=== PATIENT | female | born 1950 | race Caucasian/White ===

== ENCOUNTER 2020-07-15 20:08 | Inpatient (IN) | payer MEDICARE ==
[~2020-07-15 20:08] MED LIST: Iopamidol-370 76% 500 ML 1 ML ONE
[2020-07-15] MEDS ORDERED: Famotidine/PF 20 mg/2ml Vial ONE (23:38)
[2020-07-15] MEDS ORDERED: cefTRIAXone\\ROCEPHIN 2 GM VIAL ONE (23:38)
[2020-07-15] MEDS ORDERED: methylPREDNISolone Sod Succ/PF 125 MG/2 ML VIAL ONE (23:38)
[2020-07-15] MEDS ORDERED: diphenhydrAMINE 50 MG/ML VIAL ONE (23:38)
[2020-07-15 23:47] LABS: #Eosinphils 0.4 thou/uL (0.0-0.7); #Lymphocytes 1.4 thou/uL (1.20-3.40); #Monocytes 0.8 thou/uL (0.11-0.59); #Neutrophils 3.1 thou/uL (1.40-6.50); %Basophils 0.4 % (0.0-1.0); %Eosinophils 6.9 % (0.0-10.0); %Lymphocytes 24.5 % (21.0-51.0); %Monocytes 13.4 % (0.0-10.0); %Neutrophils 54.8 % (42.0-75.0); Hemoglobin 8.9 g/dL (12.0-16.0); Mean Corpuscular HGB CONC 32.3 g/dL (32.0-36.0); Mean Corpuscular Hemoglobin 30.8 pg (27.0-31.0); Mean Corpuscular Volume 95.1 fL (78.0-98.0); Mean Platelet Volume 7.5 fL (7.4-10.4); Platelet Count 287 thou/uL (130-400); RBC Distribution Width 17.7 % (11.5-14.5); Red Blood Cell (RBC) Count 2.91 mill/uL (4.20-5.40); White Blood Cell (WBC) Count 5.6 thou/uL (4.8-10.8)
[2020-07-16 00:08] LABS: ALT (SGPT) 27 U/L (8-55); AST (SGOT) 33 U/L (5-34); Albumin 2.6 g/dL (3.4-4.8); Alkaline Phosphatase 119 U/L (40-110); Anion Gap 10 mmol/L (10-20); BUN (Urea Nitrogen) 7 mg/dL (9.8-20.1); Bilirubin, Total 0.5 mg/dL (0.2-1.2); CK (CPK) 48 U/L (29-168); Calc. Creatinine Clearance 0 mL/min (70-130); Calcium 7.9 mg/dL (7.8-10.44); Carbon Dioxide 25 mmol/L (23-31); Chloride 109 mmol/L (98-107); Globulin 2.5 g/dL (2.4-3.5); Glucose 80 mg/dL (80-115); Potassium 3.4 mmol/L (3.5-5.1); Protein, Total 5.1 g/dL (5.8-8.1); Sodium 141 mmol/L (136-145)
[2020-07-16] MEDS ORDERED: Azithromycin 500 MG VIAL ONE (00:09)
[2020-07-16 00:29] LABS: CKMB 4.6 ng/mL (0-6.6)
[2020-07-16 03:01] LABS: SARS-CoV-2 NAA Rapid Test Not Detected (NotDetected)
[2020-07-16] MEDS ORDERED: Acetaminophen 325 MG TAB PO PRN (04:15)
[2020-07-16] MEDS ORDERED: Ondansetron ODT 4 MG TAB SL PRN (04:15)
[2020-07-16] MEDS ORDERED: Ondansetron PF 4 MG/2 ML Vial IVP PRN (04:15)
[2020-07-16 05:45] VITALS: BMI 33.2
[2020-07-16 06:01] LABS: Troponin I 0.033 ng/mL (< 0.028)
[2020-07-16] MEDS ORDERED: Non-Formulary Item 1 EACH (Albuterol Sulfate [Proventil Hfa] 200 PUFF Inh) INH PRN (07:58)
[2020-07-16] MEDS ORDERED: Non-Formulary Item 1 EACH (Lactulose [Lactulose] 10 GM/15 ML Solution) PO PRN (07:58)
[2020-07-16] MEDS ORDERED: Albuterol 200 PUFF (6.7GM INHALER) INH PRN (08:06)
[2020-07-16] MEDS ORDERED: Non-Formulary Item 1 EACH (Metoclopramide Hcl [Metoclopramide Hcl] 5 MG Tablet) PO SCH (09:00)
[2020-07-16] MEDS ORDERED: POTASSIUM BICARBONATE PO SCH (09:00)
[2020-07-16] MEDS ORDERED: cycloSPORINE 0.05% Ophthalmic Droperette EA EYE SCH (09:00)
[2020-07-16] MEDS ORDERED: Non-Formulary Item 1 EACH (Leflunomide [Arava] 20 MG Tab) PO SCH (09:00)
[2020-07-16] MEDS ORDERED: Non-Formulary Item 1 EACH (Fluticasone/Vilanterol [Breo Ellipta] 100 MCG/25 MCG Blst.W.De IH SCH (09:00)
[2020-07-16] MEDS ORDERED: CITRIC ACID PO SCH (09:00)
[2020-07-16] MEDS: Folic Acid 1 MG TAB PO SCH (12:53)
[2020-07-16] MEDS: Aspirin 81 mg Enteric Coated Tablet PO SCH (12:53)
[2020-07-16] MEDS: Furosemide 40 MG TAB PO SCH (12:53)
[2020-07-16] MEDS: Docusate 100 MG CAP PO SCH ×2 (12:53→18:36)
[2020-07-16] MEDS: Sotalol HCl 80 MG TAB PO SCH ×2 (12:55→22:00)
[2020-07-16] MEDS: Metoclopramide HCl 10 MG TAB PO SCH ×4 (12:55→21:59)
[2020-07-16] MEDS: Sucralfate 1 GM TAB PO SCH ×2 (15:44→18:30)
[2020-07-16] MEDS: Leflunomide 10 mg Tablet PO SCH (15:44)
[2020-07-16] MEDS: Polyethylene Glycol 3350 17 GM Packet PO SCH (15:45)
[2020-07-16] MEDS: Potassium Bicarbonate/Cit Ac 20 MEQ TAB PO SCH (15:45)
[2020-07-16] MEDS: cycloSPORINE 0.05% Ophthalmic Droperette EA EYE SCH ×2 (15:45→22:01)
[2020-07-16] MEDS ORDERED: Non-Formulary Item 1 EACH (Rivaroxaban [Xarelto] 20 MG Tablet) PO SCH (17:00)
[2020-07-16] MEDS: Rivaroxaban 10 MG TAB PO SCH (18:21)
[2020-07-16] MEDS: Atorvastatin Calcium 40 MG TAB PO SCH (18:36)
[2020-07-16] MEDS: Mometasone 100 MCG/Formoterol 5 MCG 120 PUFF INHALER INH SCH (19:45)
[2020-07-16] MEDS ORDERED: Non-Formulary Item 1 EACH (Atorvastatin Calcium [Atorvastatin Calcium] 80 MG Tablet) PO SCH (21:00)
[2020-07-16] MEDS: cefTRIAXone\\ROCEPHIN 1 GM in Sodium Chloride 0.9% 100 ML IVPB SCH (22:29)
[2020-07-17] MEDS ORDERED: Azithromycin 500 MG in Sodium Chloride 0.9% 250 ML 250 ML IVPB SCH (01:00)
[2020-07-17] MEDS: Mometasone 100 MCG/Formoterol 5 MCG 120 PUFF INHALER INH SCH ×2 (06:59→19:15)
[2020-07-17] MEDS: Aspirin 81 mg Enteric Coated Tablet PO SCH (09:24)
[2020-07-17] MEDS: Sucralfate 1 GM TAB PO SCH (09:24)
[2020-07-17] MEDS: Leflunomide 10 mg Tablet PO SCH (09:24)
[2020-07-17] MEDS: Folic Acid 1 MG TAB PO SCH (09:25)
[2020-07-17] MEDS: Metoclopramide HCl 10 MG TAB PO SCH ×4 (09:25→21:26)
[2020-07-17] MEDS: Furosemide 40 MG TAB PO SCH (09:25)
[2020-07-17] MEDS: Sotalol HCl 80 MG TAB PO SCH ×2 (09:26→21:27)
[2020-07-17] MEDS: Docusate 100 MG CAP PO SCH ×2 (09:26→21:27)
[2020-07-17] MEDS: Potassium Bicarbonate/Cit Ac 20 MEQ TAB PO SCH (09:27)
[2020-07-17] MEDS: Polyethylene Glycol 3350 17 GM Packet PO SCH (09:27)
[2020-07-17] MEDS: cycloSPORINE 0.05% Ophthalmic Droperette EA EYE SCH ×2 (09:29→21:26)
[2020-07-17 11:16] LABS: Reticulocyte Count 6.6 % (0.5-1.5)
[2020-07-17 11:17] LABS: #Basophils 0.1 thou/uL (0.0-0.2); #Eosinphils 0.1 thou/uL (0.0-0.7); #Lymphocytes 1.9 thou/uL (1.20-3.40); #Monocytes 0.8 thou/uL (0.11-0.59); #Neutrophils 3.9 thou/uL (1.40-6.50); %Basophils 0.8 % (0.0-1.0); %Lymphocytes 28.8 % (21.0-51.0); %Monocytes 11.2 % (0.0-10.0); %Neutrophils 58.2 % (42.0-75.0); Hemoglobin 9.1 g/dL (12.0-16.0); Mean Corpuscular HGB CONC 32.2 g/dL (32.0-36.0); Mean Corpuscular Hemoglobin 30.6 pg (27.0-31.0); Mean Corpuscular Volume 95.1 fL (78.0-98.0); Mean Platelet Volume 7.3 fL (7.4-10.4); Platelet Count 394 thou/uL (130-400); RBC Distribution Width 17.5 % (11.5-14.5); Red Blood Cell (RBC) Count 2.96 mill/uL (4.20-5.40); White Blood Cell (WBC) Count 6.7 thou/uL (4.8-10.8)
[2020-07-17 11:35] LABS: ALT (SGPT) 23 U/L (8-55); AST (SGOT) 17 U/L (5-34); Albumin 2.7 g/dL (3.4-4.8); Alkaline Phosphatase 102 U/L (40-110); Anion Gap 13 mmol/L (10-20); BUN (Urea Nitrogen) 10 mg/dL (9.8-20.1); Bilirubin, Total 0.4 mg/dL (0.2-1.2); CRP (Inflammatory) 0.57 mg/dL (= or < 0.5); Calc. Creatinine Clearance 135 mL/min (70-130); Calcium 8.4 mg/dL (7.8-10.44); Carbon Dioxide 27 mmol/L (23-31); Chloride 106 mmol/L (98-107); Globulin 2.3 g/dL (2.4-3.5); Glucose 102 mg/dL (80-115); Iron 24 ug/dL (50-170); Iron Binding Capacity, Total 233 mcg/dL (265-497); Potassium 3.2 mmol/L (3.5-5.1); Sodium 143 mmol/L (136-145)
[2020-07-17] MEDS ORDERED: Potassium Chloride 20 MEQ TAB PO SCH (14:00)
[2020-07-17] MEDS: Rivaroxaban 10 MG TAB PO SCH (17:07)
[2020-07-17] MEDS: HYDROcodone/Acetaminophen 5/325 mg Tablet PO PRN (21:25)
[2020-07-17] MEDS: Atorvastatin Calcium 40 MG TAB PO SCH (21:26)
[2020-07-17] MEDS: cefTRIAXone\\ROCEPHIN 1 GM in Sodium Chloride 0.9% 100 ML IVPB SCH (23:22)
[2020-07-18] MEDS: Mometasone 100 MCG/Formoterol 5 MCG 120 PUFF INHALER INH SCH ×2 (06:53→19:16)
[2020-07-18] MEDS: Docusate 100 MG CAP PO SCH ×2 (07:14→21:19)
[2020-07-18] MEDS: Polyethylene Glycol 3350 17 GM Packet PO SCH (07:15)
[2020-07-18] MEDS ORDERED: Potassium Chloride 20 MEQ TAB PO SCH (08:00)
[2020-07-18] MEDS: Sotalol HCl 80 MG TAB PO SCH ×2 (08:41→21:18)
[2020-07-18] MEDS: Aspirin 81 mg Enteric Coated Tablet PO SCH (08:42)
[2020-07-18] MEDS: Folic Acid 1 MG TAB PO SCH (08:43)
[2020-07-18] MEDS: Metoclopramide HCl 10 MG TAB PO SCH ×4 (08:44→21:18)
[2020-07-18] MEDS: Leflunomide 10 mg Tablet PO SCH (08:44)
[2020-07-18] MEDS: cycloSPORINE 0.05% Ophthalmic Droperette EA EYE SCH ×2 (10:09→21:23)
[2020-07-18] MEDS: Furosemide 40 MG TAB PO SCH (10:11)
[2020-07-18] MEDS: HYDROcodone/Acetaminophen 5/325 mg Tablet PO PRN ×2 (10:34→14:41)
[2020-07-18] MEDS ORDERED: Potassium Chloride 20 MEQ in Premix Bag 1 BAG IVPB SCH (11:00)
[2020-07-18] MEDS ORDERED: Iron, Sodium Ferric Gluconate 250 MG in Sodium Chloride 0.9% 100 ML IVPB SCH (11:00)
[2020-07-18] MEDS ORDERED: Potassium Chloride 10 MEQ TAB PO SCH (11:45)
[2020-07-18] MEDS: Rivaroxaban 10 MG TAB PO SCH (17:00)
[2020-07-18] MEDS: HYDROcodone/Acetaminophen 10/325 mg Tablet PO PRN (21:17)
[2020-07-18] MEDS: Atorvastatin Calcium 40 MG TAB PO SCH (21:18)
[2020-07-18] MEDS: cefTRIAXone\\ROCEPHIN 1 GM in Sodium Chloride 0.9% 100 ML IVPB SCH (23:59)
[2020-07-19 05:35] LABS: #Basophils 0.1 thou/uL (0.0-0.2); #Eosinphils 0.3 thou/uL (0.0-0.7); #Lymphocytes 2.2 thou/uL (1.20-3.40); #Monocytes 0.9 thou/uL (0.11-0.59); #Neutrophils 3.1 thou/uL (1.40-6.50); %Basophils 1.3 % (0.0-1.0); %Eosinophils 4.8 % (0.0-10.0); %Monocytes 13.8 % (0.0-10.0); %Neutrophils 47.1 % (42.0-75.0); Hemoglobin 9.4 g/dL (12.0-16.0); Mean Corpuscular HGB CONC 32.4 g/dL (32.0-36.0); Mean Corpuscular Hemoglobin 30.5 pg (27.0-31.0); Mean Corpuscular Volume 94.2 fL (78.0-98.0); Mean Platelet Volume 7.1 fL (7.4-10.4); Platelet Count 439 thou/uL (130-400); RBC Distribution Width 16.9 % (11.5-14.5); Red Blood Cell (RBC) Count 3.08 mill/uL (4.20-5.40); White Blood Cell (WBC) Count 6.6 thou/uL (4.8-10.8)
[2020-07-19 05:58] LABS: Anion Gap 14 mmol/L (10-20); BUN (Urea Nitrogen) 8 mg/dL (9.8-20.1); Calc. Creatinine Clearance 143 mL/min (70-130); Calcium 8.3 mg/dL (7.8-10.44); Carbon Dioxide 30 mmol/L (23-31); Chloride 101 mmol/L (98-107); Glucose 84 mg/dL (80-115); Potassium 3.9 mmol/L (3.5-5.1); Sodium 141 mmol/L (136-145)
[2020-07-19] MEDS: Mometasone 100 MCG/Formoterol 5 MCG 120 PUFF INHALER INH SCH ×2 (06:48→19:45)
[2020-07-19] MEDS: Aspirin 81 mg Enteric Coated Tablet PO SCH (09:39)
[2020-07-19] MEDS: Folic Acid 1 MG TAB PO SCH (09:40)
[2020-07-19] MEDS: Sotalol HCl 80 MG TAB PO SCH ×2 (09:40→20:47)
[2020-07-19] MEDS: Furosemide 40 MG TAB PO SCH (09:41)
[2020-07-19] MEDS: Leflunomide 10 mg Tablet PO SCH (09:41)
[2020-07-19] MEDS: Docusate 100 MG CAP PO SCH ×2 (09:41→20:50)
[2020-07-19] MEDS: Metoclopramide HCl 10 MG TAB PO SCH ×4 (09:42→20:50)
[2020-07-19] MEDS: Polyethylene Glycol 3350 17 GM Packet PO SCH (09:42)
[2020-07-19] MEDS: Potassium Bicarbonate/Cit Ac 20 MEQ TAB PO SCH (09:44)
[2020-07-19] MEDS ORDERED: Potassium Chloride 10 MEQ TAB PO SCH (09:45)
[2020-07-19] MEDS: cycloSPORINE 0.05% Ophthalmic Droperette EA EYE SCH ×2 (10:57→21:04)
[2020-07-19] MEDS: Rivaroxaban 10 MG TAB PO SCH (16:53)
[2020-07-19] MEDS: Cefdinir 300 MG CAP PO SCH (20:49)
[2020-07-19] MEDS: Atorvastatin Calcium 40 MG TAB PO SCH (20:49)
[2020-07-20] MEDS: HYDROcodone/Acetaminophen 10/325 mg Tablet PO PRN (00:32)
[2020-07-20] MEDS: Mometasone 100 MCG/Formoterol 5 MCG 120 PUFF INHALER INH SCH ×2 (07:05→19:16)
[2020-07-20] MEDS: Furosemide 40 MG TAB PO SCH (08:57)
[2020-07-20] MEDS: Aspirin 81 mg Enteric Coated Tablet PO SCH (08:57)
[2020-07-20] MEDS: Metoclopramide HCl 10 MG TAB PO SCH ×4 (08:57→22:39)
[2020-07-20] MEDS: Cefdinir 300 MG CAP PO SCH ×2 (08:57→22:40)
[2020-07-20] MEDS: Potassium Chloride 10 MEQ TAB PO SCH (08:58)
[2020-07-20] MEDS: Docusate 100 MG CAP PO SCH ×2 (08:58→22:40)
[2020-07-20] MEDS: Folic Acid 1 MG TAB PO SCH (08:58)
[2020-07-20] MEDS: Sotalol HCl 80 MG TAB PO SCH ×2 (08:58→22:40)
[2020-07-20] MEDS: Polyethylene Glycol 3350 17 GM Packet PO SCH (08:58)
[2020-07-20] MEDS: Leflunomide 10 mg Tablet PO SCH (08:59)
[2020-07-20] MEDS: cycloSPORINE 0.05% Ophthalmic Droperette EA EYE SCH ×2 (09:46→22:39)
[2020-07-20] MEDS: Rivaroxaban 10 MG TAB PO SCH (16:34)
[2020-07-20] MEDS ORDERED: Ondansetron ODT 4 MG TAB PO SCH (22:15)
[2020-07-20] MEDS: Atorvastatin Calcium 40 MG TAB PO SCH (22:40)
[2020-07-21] MEDS: Mometasone 100 MCG/Formoterol 5 MCG 120 PUFF INHALER INH SCH ×2 (07:17→18:31)
[2020-07-21] MEDS: Polyethylene Glycol 3350 17 GM Packet PO SCH (10:02)
[2020-07-21] MEDS: Sotalol HCl 80 MG TAB PO SCH ×2 (10:04→22:05)
[2020-07-21] MEDS: Aspirin 81 mg Enteric Coated Tablet PO SCH (10:04)
[2020-07-21] MEDS: Cefdinir 300 MG CAP PO SCH ×2 (10:04→22:04)
[2020-07-21] MEDS: Metoclopramide HCl 10 MG TAB PO SCH ×4 (10:05→22:04)
[2020-07-21] MEDS: Potassium Chloride 10 MEQ TAB PO SCH (10:05)
[2020-07-21] MEDS: Docusate 100 MG CAP PO SCH ×2 (10:05→22:04)
[2020-07-21] MEDS: Furosemide 40 MG TAB PO SCH (10:05)
[2020-07-21] MEDS: Folic Acid 1 MG TAB PO SCH (10:05)
[2020-07-21] MEDS: Leflunomide 10 mg Tablet PO SCH (10:06)
[2020-07-21] MEDS: cycloSPORINE 0.05% Ophthalmic Droperette EA EYE SCH ×2 (11:56→21:58)
[2020-07-21] MEDS: Rivaroxaban 10 MG TAB PO SCH (17:37)
[2020-07-21] MEDS: Atorvastatin Calcium 40 MG TAB PO SCH (22:04)
[2020-07-22] MEDS: Mometasone 100 MCG/Formoterol 5 MCG 120 PUFF INHALER INH SCH ×2 (06:30→19:04)
[2020-07-22] MEDS: Cefdinir 300 MG CAP PO SCH ×2 (10:22→22:45)
[2020-07-22] MEDS: Docusate 100 MG CAP PO SCH ×2 (10:22→22:45)
[2020-07-22] MEDS: Leflunomide 10 mg Tablet PO SCH (10:23)
[2020-07-22] MEDS: Polyethylene Glycol 3350 17 GM Packet PO SCH (10:23)
[2020-07-22] MEDS: Aspirin 81 mg Enteric Coated Tablet PO SCH (10:24)
[2020-07-22] MEDS: Potassium Chloride 10 MEQ TAB PO SCH (10:24)
[2020-07-22] MEDS: Metoclopramide HCl 10 MG TAB PO SCH ×4 (10:25→22:45)
[2020-07-22] MEDS: Furosemide 40 MG TAB PO SCH (10:25)
[2020-07-22] MEDS: Folic Acid 1 MG TAB PO SCH (10:26)
[2020-07-22] MEDS: Sotalol HCl 80 MG TAB PO SCH ×2 (10:26→22:48)
[2020-07-22] MEDS: cycloSPORINE 0.05% Ophthalmic Droperette EA EYE SCH ×2 (11:44→22:47)
[2020-07-22] MEDS: Rivaroxaban 10 MG TAB PO SCH (16:30)
[2020-07-22] MEDS: Atorvastatin Calcium 40 MG TAB PO SCH (22:45)
[2020-07-23] MEDS: Mometasone 100 MCG/Formoterol 5 MCG 120 PUFF INHALER INH SCH ×2 (07:41→19:37)
[2020-07-23] MEDS: Aspirin 81 mg Enteric Coated Tablet PO SCH (08:43)
[2020-07-23] MEDS: Sotalol HCl 80 MG TAB PO SCH ×2 (08:44→22:15)
[2020-07-23] MEDS: Cefdinir 300 MG CAP PO SCH ×2 (08:45→22:15)
[2020-07-23] MEDS: Potassium Chloride 10 MEQ TAB PO SCH (08:46)
[2020-07-23] MEDS: Furosemide 40 MG TAB PO SCH ×2 (08:46→09:01)
[2020-07-23] MEDS: Folic Acid 1 MG TAB PO SCH (08:47)
[2020-07-23] MEDS: Metoclopramide HCl 10 MG TAB PO SCH ×4 (08:48→22:13)
[2020-07-23] MEDS: Leflunomide 10 mg Tablet PO SCH (08:49)
[2020-07-23] MEDS: Docusate 100 MG CAP PO SCH ×2 (08:49→22:15)
[2020-07-23] MEDS: Polyethylene Glycol 3350 17 GM Packet PO SCH (08:50)
[2020-07-23] MEDS: cycloSPORINE 0.05% Ophthalmic Droperette EA EYE SCH ×2 (08:51→22:16)
[2020-07-23] MEDS: Atorvastatin Calcium 40 MG TAB PO SCH (22:13)
[2020-07-23] MEDS ORDERED: traZODone HCl 50 MG TAB PO SCH (22:30)
[2020-07-24 04:55] LABS: #Basophils 0.1 thou/uL (0.0-0.2); #Eosinphils 0.2 thou/uL (0.0-0.7); #Neutrophils 4.5 thou/uL (1.40-6.50); %Basophils 1.6 % (0.0-1.0); %Eosinophils 2.1 % (0.0-10.0); %Monocytes 12.6 % (0.0-10.0); %Neutrophils 57.7 % (42.0-75.0); Hemoglobin 8.8 g/dL (12.0-16.0); Mean Corpuscular HGB CONC 31.3 g/dL (32.0-36.0); Mean Corpuscular Hemoglobin 29.1 pg (27.0-31.0); Mean Corpuscular Volume 93.1 fL (78.0-98.0); Mean Platelet Volume 7.5 fL (7.4-10.4); Platelet Count 442 thou/uL (130-400); RBC Distribution Width 16.4 % (11.5-14.5); Red Blood Cell (RBC) Count 3.03 mill/uL (4.20-5.40); White Blood Cell (WBC) Count 7.7 thou/uL (4.8-10.8)
[2020-07-24 05:12] LABS: Anion Gap 15 mmol/L (10-20); BUN (Urea Nitrogen) 12 mg/dL (9.8-20.1); Calc. Creatinine Clearance 130 mL/min (70-130); Calcium 8.3 mg/dL (7.8-10.44); Carbon Dioxide 32 mmol/L (23-31); Chloride 95 mmol/L (98-107); Glucose 85 mg/dL (80-115); Potassium 3.1 mmol/L (3.5-5.1); Sodium 139 mmol/L (136-145)
[2020-07-24] MEDS: Mometasone 100 MCG/Formoterol 5 MCG 120 PUFF INHALER INH SCH ×2 (06:46→18:35)
[2020-07-24] MEDS ORDERED: PROPOFOL 200 MG/20 ML VIAL ONE (10:26)
[2020-07-24] MEDS: Cefdinir 300 MG CAP PO SCH ×2 (10:31→20:31)
[2020-07-24] MEDS: Metoclopramide HCl 10 MG TAB PO SCH ×4 (10:31→20:28)
[2020-07-24] MEDS: Docusate 100 MG CAP PO SCH ×2 (10:31→20:31)
[2020-07-24] MEDS: Sotalol HCl 80 MG TAB PO SCH ×2 (10:32→20:31)
[2020-07-24] MEDS: cycloSPORINE 0.05% Ophthalmic Droperette EA EYE SCH ×2 (10:32→20:29)
[2020-07-24] MEDS: Polyethylene Glycol 3350 17 GM Packet PO SCH (10:32)
[2020-07-24] MEDS: Folic Acid 1 MG TAB PO SCH (13:05)
[2020-07-24] MEDS: Leflunomide 10 mg Tablet PO SCH (13:05)
[2020-07-24] MEDS: Aspirin 81 mg Enteric Coated Tablet PO SCH (13:05)
[2020-07-24] MEDS: Furosemide 40 MG TAB PO SCH (13:05)
[2020-07-24] MEDS: Potassium Chloride 10 MEQ TAB PO SCH (13:06)
[2020-07-24] MEDS ORDERED: Potassium Chloride 20 MEQ TAB PO SCH (13:30)
[2020-07-24] MEDS ORDERED: Rivaroxaban 10 MG TAB PO SCH (17:00)
[2020-07-24] MEDS ORDERED: SUGAMMADEX SODIUM 200 MG/2 ML VIAL ONE (17:30)
[2020-07-24] MEDS ORDERED: traZODone HCl 50 MG TAB PO PRN (19:49)
[2020-07-24] MEDS: Atorvastatin Calcium 40 MG TAB PO SCH (20:31)
[2020-07-25 04:53] LABS: #Basophils 0.1 thou/uL (0.0-0.2); #Eosinphils 0.1 thou/uL (0.0-0.7); #Lymphocytes 1.9 thou/uL (1.20-3.40); #Monocytes 0.9 thou/uL (0.11-0.59); #Neutrophils 4.7 thou/uL (1.40-6.50); %Eosinophils 1.8 % (0.0-10.0); %Lymphocytes 24.8 % (21.0-51.0); %Monocytes 11.9 % (0.0-10.0); %Neutrophils 60.6 % (42.0-75.0); Hemoglobin 8.2 g/dL (12.0-16.0); Mean Corpuscular HGB CONC 31.2 g/dL (32.0-36.0); Mean Platelet Volume 7.8 fL (7.4-10.4); Platelet Count 378 thou/uL (130-400); RBC Distribution Width 16.5 % (11.5-14.5); Red Blood Cell (RBC) Count 2.82 mill/uL (4.20-5.40); White Blood Cell (WBC) Count 7.8 thou/uL (4.8-10.8)
[2020-07-25 05:14] LABS: Anion Gap 19 mmol/L (10-20); BUN (Urea Nitrogen) 10 mg/dL (9.8-20.1); Calc. Creatinine Clearance 138 mL/min (70-130); Calcium 7.9 mg/dL (7.8-10.44); Carbon Dioxide 27 mmol/L (23-31); Chloride 96 mmol/L (98-107); Glucose 72 mg/dL (80-115); Magnesium 1.4 mg/dL (1.6-2.6); Sodium 140 mmol/L (136-145)
[2020-07-25 05:26] LABS: Potassium 2.4 mmol/L (3.5-5.1)
[2020-07-25] MEDS ORDERED: Electrolyte Replacement Protocol FS PRN (06:15)
[2020-07-25] MEDS ORDERED: Magnesium Sulfate 4 GM in Sodium Chloride 0.9% 250 ML 250 ML IVPB SCH (06:15)
[2020-07-25] MEDS: Potassium Chloride 40 MEQ in Sodium Chloride 0.9% 250 ML 250 ML IVPB SCH ×3 (06:46→16:00)
[2020-07-25] MEDS: Mometasone 100 MCG/Formoterol 5 MCG 120 PUFF INHALER INH SCH (07:00)
[2020-07-25] MEDS: cycloSPORINE 0.05% Ophthalmic Droperette EA EYE SCH (10:20)
[2020-07-25] MEDS: Docusate 100 MG CAP PO SCH (10:25)
[2020-07-25] MEDS: Metoclopramide HCl 10 MG TAB PO SCH ×3 (10:25→17:51)
[2020-07-25] MEDS: Polyethylene Glycol 3350 17 GM Packet PO SCH (10:25)
[2020-07-25] MEDS: Cefdinir 300 MG CAP PO SCH (13:15)
[2020-07-25] MEDS: Aspirin 81 mg Enteric Coated Tablet PO SCH (13:16)
[2020-07-25] MEDS: Folic Acid 1 MG TAB PO SCH (13:17)
[2020-07-25] MEDS: Leflunomide 10 mg Tablet PO SCH (13:17)
[2020-07-25] MEDS: Sotalol HCl 80 MG TAB PO SCH (13:17)
[2020-07-25] MEDS: Potassium Chloride 10 MEQ TAB PO SCH (13:18)
[2020-07-25] MEDS: Furosemide 40 MG TAB PO SCH (13:23)
[2020-07-25 15:35] LABS: Potassium 3.5 mmol/L (3.5-5.1)
[2020-07-25 20:10] VITALS: BP 107/67; TEMP 97.6
== END 2020-07-25 20:08 | DRG 193 ==
LOC: ERS 20:08 → OBSVTOIN 07-16 01:38 → 2SE 07-16 01:38
PROVIDERS: ADMIT Student in an Organized Health Care Education/Training Program; ATTEND Internal Medicine
PROC: 0D768ZZ Dilation of Stomach, Via Natural or Artificial Opening Endoscopic (ICD-10-PCS; principal; 2020-07-24)
DX: J18.9 Pneumonia, unspecified organism (principal); J96.01 Acute respiratory failure with hypoxia; I50.31 Acute diastolic (congestive) heart failure; M48.54XA Collapsed vertebra, not elsewhere classified, thoracic region, initial encounter for fracture; K95.09 Other complications of gastric band procedure; I47.2 Ventricular tachycardia; I11.0 Hypertensive heart disease with heart failure; Z20.822 Contact with and (suspected) exposure to COVID-19; K31.89 Other diseases of stomach and duodenum; E87.6 Hypokalemia; E83.42 Hypomagnesemia; I48.0 Paroxysmal atrial fibrillation; M06.9 Rheumatoid arthritis, unspecified; D16.02 Benign neoplasm of scapula and long bones of left upper limb; I08.1 Rheumatic disorders of both mitral and tricuspid valves; G47.00 Insomnia, unspecified; R13.10 Dysphagia, unspecified; E78.00 Pure hypercholesterolemia, unspecified; F41.9 Anxiety disorder, unspecified; F32.9 Major depressive disorder, single episode, unspecified; M32.9 Systemic lupus erythematosus, unspecified; I48.91 Unspecified atrial fibrillation; D50.9 Iron deficiency anemia, unspecified; E78.5 Hyperlipidemia, unspecified; K22.2 Esophageal obstruction; L89.320 Pressure ulcer of left buttock, unstageable; L89.310 Pressure ulcer of right buttock, unstageable; Y83.1 Surgical operation with implant of artificial internal device as the cause of abnormal reaction of the patient, or of later complication, without mention of misadventure at the time of the procedure; Z79.899 Other long term (current) drug therapy; Z90.49 Acquired absence of other specified parts of digestive tract; Z86.16 Personal history of COVID-19
CPT/HCPCS: 0240U; 36415; 36416; 71045; 71275; 72100; 72128; 72131; 74230; 80048; 80053; 82274; 82306; 82550; 82553; 82607; 82728; 82746; 83540; 83550; 83735; 83880; 84484; 85025; 85046; 86140; 87040; 93005; 93306; 96365; 96367; 96375; G0378; J0456; J0696; J1200; J2704; J2916; J2930; J3475; J3480; J3490; J7050; Q0162; Q9967; S0028